=== PATIENT | male | born 1980 | race African-American/Black ===

== ENCOUNTER → 2019-09-16 | Outpatient (CLI) | payer OTHER | LOC: CAT 11:37 | DX: Z13.6 Encounter for screening for cardiovascular disorders (principal); E78.00 Pure hypercholesterolemia, unspecified; I25.10 Atherosclerotic heart disease of native coronary artery without angina pectoris ==

== ENCOUNTER → 2020-05-15 | Outpatient (CLI) | payer BC, OTHER | LOC: SJCVCIMAG 10:10 | PROVIDERS: ATTEND Internal Medicine | DX: R06.00 Dyspnea, unspecified (principal); R07.9 Chest pain, unspecified; D64.9 Anemia, unspecified ==